=== PATIENT | male | born 1975 | race Caucasian/White ===

== ENCOUNTER 2019-12-03 15:38 | Emergency (ER) | payer MEDICAID ==
[~2019-12-03] VITALS: Ht 175.3 cm; Wt 67.0 kg
[2019-12-03 15:41] VITALS: BP 139/85
[2019-12-03] MEDS ORDERED: methylPREDNISolone sod succ 125mg/2ml vial IM ONE (16:20)
== END 2019-12-03 16:38 | disposition home or self-care (01) ==
LOC: ER 15:39
DX: L50.9 Urticaria, unspecified (principal)
CPT/HCPCS: 96372; 99283; J2930